=== PATIENT | male | born 1930 | race Caucasian/White ===

== ENCOUNTER 2019-07-16 10:26 | Inpatient (IN) | payer MEDICARE, BC ==
--- NOTE | 2019-07-16 11:18 | RAD ---
PORTABLE CHEST ONE VIEW: 07/16/2019 10:42 a.m. HISTORY: Dyspnea. Dizziness. COMPARISON: 12/30/2007 FINDINGS: The heart size is normal. A left-sided pacemaker device is seen. No lobar consolidation, pneumothorac es or pleural effusions are identified. IMPRESSION: No radiographic evidence of acute cardiopulmonary process. POS: OFF
[2019-07-16 11:36] LABS: ALT (SGPT) 18 U/L (8-55); AST (SGOT) 22 U/L (5-34); Albumin 3.6 g/dL (3.4-4.8); Alkaline Phosphatase 101 U/L (40-110); Anion Gap 11 mmol/L (10-20); BUN (Urea Nitrogen) 19 mg/dL (8.4-25.7); Bilirubin, Total 0.6 mg/dL (0.2-1.2); CK (CPK) 42 U/L (30-200); Calc. Creatinine Clearance 0 mL/min (70-130); Calcium 8.1 mg/dL (7.8-10.44); Carbon Dioxide 28 mmol/L (23-31); Chloride 100 mmol/L (98-107); Estimated GFR-MDRD 41; Globulin 2.4 g/dL (2.4-3.5); Glucose 113 mg/dL (83-110); Lipase 18 U/L (8-78); Potassium 3.2 mmol/L (3.5-5.1); Sodium 136 mmol/L (136-145)
[2019-07-16 12:01] LABS: Bilirubin Negative (Negative); Blood, Urine Negative (Negative); Clarity Clear (Clear); Glucose, Urine (Dipstick) Normal (Negative); Leukocyte Negative Leu/uL (Negative); Nitrite Negative (Negative); Protein, Urine (Dipstick) Negative (Neg-Trace); Urobilinogen Normal mg/dL (Less than 2)
[2019-07-16 12:01] LABS: CKMB 1.4 ng/mL (0-6.6)
[2019-07-16 12:37] LABS: #Basophils 0.1 thou/uL (0.0-0.2); #Eosinphils 0.2 thou/uL (0.0-0.7); #Lymphocytes 1.6 thou/uL (1.20-3.40); #Monocytes 0.7 thou/uL (0.11-0.59); #Neutrophils 5.5 thou/uL (1.40-6.50); %Basophils 1.1 % (0.0-1.0); %Eosinophils 2.6 % (0.0-10.0); %Lymphocytes 20.3 % (21.0-51.0); %Monocytes 8.1 % (0.0-10.0); %Neutrophils 67.9 % (42.0-75.0); Hemoglobin 15.8 g/dL (14.0-18.0); Mean Corpuscular HGB CONC 33.5 g/dL (32.0-36.0); Mean Corpuscular Hemoglobin 32.8 pg (27.0-31.0); Mean Corpuscular Volume 97.9 fL (78.0-98.0); Platelet Count 199 thou/uL (130-400); RBC Distribution Width 13.4 % (11.5-14.5); Red Blood Cell (RBC) Count 4.82 mill/uL (4.70-6.10); White Blood Cell (WBC) Count 8.1 thou/uL (4.8-10.8)
[2019-07-16] MEDS ORDERED: Iopamidol-370 76% 500 ML 1 ML ONE (13:10)
[2019-07-16] MEDS ORDERED: Aspirin Chewable 81 MG TAB ONE (15:04)
[2019-07-16] MEDS ORDERED: Potassium Chloride 20 MEQ TAB ONE (15:04)
--- NOTE | 2019-07-16 15:28 | PDOC.FPRHP ---
- History of Present Illness Chief Complaint: Hypotension History of Present Illness: Pt is an 88 yo M with pmh BPH, hypothyroidism, CAD, depression, and anxiety who presents for tachycardia and hypotension. He says he has had fluctations where he has had his heart rate in the 120-130s with his systolic blood pressure in the 70s. He says he had chest pain 2 days ago and took a nitro and it resolved. 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 Kirkpatrick, back in March. He said he had a full work up in February, which showed some stenosis. ED Course: In the ED, he received 40 K+, 1L NS, and an ASA. He was found to have a DDimer: 0.53 so VQ scan was ordered. Troponin was 0.029, BNP was 58.5. - Allergies/Adverse Reactions Allergies Allergy/AdvReac Type Severity Reaction Status Date / Time diltiazem Allergy Verified 07/16/19 16:07 warfarin [From Coumadin] Allergy Verified 07/16/19 16:31 coumadin Allergy Uncoded 07/16/19 16:31 - Home Medications Medication Instructions Recorded Confirmed Type ALPRAZolam [Xanax] 0.5 mg PO TID PRN 07/16/19 07/16/19 History Aspirin Chewable 81 mg PO DAILY 07/16/19 07/16/19 History Cyanocobalamin (Vitamin B-12) 1,000 mcg PO DAILY 07/16/19 07/16/19 History [Vitamin B-12] Finasteride [Proscar] 5 mg PO DAILY 07/16/19 07/16/19 History Fish Oil 1,000 mg PO DAILY 07/16/19 07/16/19 History Flaxseed Oil [Flax Oil] 2 tablet PO DAILY 07/16/19 07/16/19 History Hydrochlorothiazide 25 mg PO DAILY 07/16/19 07/16/19 History Isosorbide Mononitrate [Imdur ER] 30 mg PO DAILY 07/16/19 07/16/19 History Levothyroxine Sodium [Synthroid] 25 mcg PO DAILY 07/16/19 07/16/19 History Losartan [Cozaar] 25 mg PO DAILY 07/16/19 07/16/19 History Metoprolol Succinate [Toprol XL] 25 mg PO DAILY 07/16/19 07/16/19 History Mirtazapine [Remeron Soltab] 15 mg PO BID 07/16/19 07/16/19 History Multivitamin [Multiple Vitamins] 1 each PO DAILY 07/16/19 07/16/19 History Niacin (Inositol Niacinate) 500 mg PO HS 07/16/19 07/16/19 History [Niacin 500 mg Capsule] Nitroglycerin [Nitrostat] 0.4 mg SL Q5MIN PRN 07/16/19 07/16/19 History OLANZapine [ZyPREXA] 2.5 mg PO DAILY 07/16/19 07/16/19 History PARoxetine HCl [Paroxetine HCl] 10 mg PO DAILY 07/16/19 07/16/19 History Simvastatin [Zocor] 20 mg PO HS 07/16/19 07/16/19 History - History PMHx: BPH, Hypothyroidism, CAD, Depression, Anxiety PSHx: Appendectomy 50 years ago, Stent x1 (7-8 years ago) FHx: AMAYA in [facility] Social: Denies alcohol, recreational drugs, or tobacco abuse. - Review of Systems General: denies: fever/chills Eyes: denies: vision changes ENT: denies: nasal congestion, rhinorrhea Respiratory: denies: cough, congestion, shortness of breath Cardiovascular: reports: chest pain. denies: edema Gastrointestinal: denies: nausea, vomiting, diarrhea, constipation, abdominal pain Genitourinary: reports: other (urinary hesitancy) Skin: denies: rashes, lesions Musculoskeletal: denies: pain, tenderness Neurological: reports: other (Dizziness). denies: numbness, weakness Psychological: reports: anxiety, depression - Vital signs BP: 156/81 HR: 60 RR: 17 Tmax: 97. Pox: 96% on RA Wt: 79 kg - Physical Exam Constitutional: NAD, awake, alert and oriented HEENT: normocephalic and atraumatic, conjunctiva clear, no scleral icterus, normal nasal mucosa, MMM, oropharynx clear Neck: supple, no LAD Heart: RRR, normal S1/S2, no murmurs/rubs/gallops, pulses present, no edema Lungs: CTAB, no respiratory distress, good air movement, no rales/rhonchi, no wheezing, no retractions Abdomen: soft, non-tender, bowel sounds present, no masses/distention, no hernias Musculoskeletal: normal structure, normal tone Neurological: no focal deficit, normal sensation Skin: no rash/lesions, good turgor Heme/Lymphatic: no unusual bruising or bleeding, no purpura, no petechia FMR H&P: Results - Labs Result Diagrams: 07/17/19 04:15 07/17/19 04:15 Lab results: WBC 8.1 thou/uL (4.8-10.8) 07/16/19 11:07 Hgb 15.8 g/dL (14.0-18.0) 07/16/19 11:07 Hct 47.2 % (42.0-52.0) 07/16/19 11:07 MCV 97.9 fL (78.0-98.0) 07/16/19 11:07 Plt Count 199 thou/uL (130-400) 07/16/19 11:07 Neutrophils % 67.9 % (42.0-75.0) 07/16/19 11:07 Sodium 136 mmol/L (136-145) 07/16/19 10:54 Potassium 3.2 mmol/L (3.5-5.1) L 07/16/19 10:54 Chloride 100 mmol/L (98-107) 07/16/19 10:54 Carbon Dioxide 28 mmol/L (23-31) 07/16/19 10:54 BUN 19 mg/dL (8.4-25.7) 07/16/19 10:54 Creatinine 1.59 mg/dL (0.7-1.3) H 07/16/19 10:54 Glucose 113 mg/dL (83-110) H 07/16/19 10:54 Lactic Acid 1.6 mmol/L (0.5-2.2) 07/16/19 11:04 Calcium 8.1 mg/dL (7.8-10.44) 07/16/19 10:54 Total Bilirubin 0.6 mg/dL (0.2-1.2) 07/16/19 10:54 AST 22 U/L (5-34) 07/16/19 10:54 ALT 18 U/L (8-55) 07/16/19 10:54 Alkaline Phosphatase 101 U/L (40-110) 07/16/19 10:54 Creatine Kinase 42 U/L (30-200) 07/16/19 10:54 CK-MB (CK-2) 1.4 ng/mL (0-6.6) 07/16/19 10:54 B-Natriuretic Peptide 58.5 pg/mL (0-100) 07/16/19 10:54 Serum Total Protein 6.0 g/dL (5.8-8.1) 07/16/19 10:54 Albumin 3.6 g/dL (3.4-4.8) 07/16/19 10:54 Lipase 18 U/L (8-78) 07/16/19 10:54 Urine Ketones Negative mg/dL (Negative) 07/16/19 11:38 Urine Blood Negative (Negative) 07/16/19 11:38 Urine Nitrite Negative (Negative) 07/16/19 11:38 Ur Leukocyte Esterase Negative Zuleyma/uL (Negative) 07/16/19 11:38 FMR H&P: A/P - Problem List (1) CAD (coronary artery disease) Current Visit: Yes Status: Acute Code(s): I25.10 - ATHSCL HEART DISEASE OF [place] CORONARY ARTERY W/O ANG PCTRS (2) HTN (hypertension) Current Visit: Yes Status: Acute Code(s): I10 - ESSENTIAL (PRIMARY) HYPERTENSION (3) HLD (hyperlipidemia) Current Visit: Yes Status: Acute Code(s): E78.5 - HYPERLIPIDEMIA, UNSPECIFIED (4) Depression Current Visit: Yes Status: Acute Code(s): F32.9 - MAJOR DEPRESSIVE DISORDER , SINGLE EPISODE, UNSPECIFIED (5) Anxiety Current Visit: Yes Status: Acute Code(s): F41.9 - ANXIETY DISORDER, UNSPECIFIED (6) BPH (benign prostatic hyperplasia) Current Visit: Yes Status: Acute Code(s): N40.0 - BENIGN PROSTATIC HYPERPLASIA WITHOUT LOWER URINRY TRACT SYMP (7) GIANNI (acute kidney injury) Current Visit: Yes Status: Acute Code(s): N17.9 - ACUTE KIDNEY FAILURE, UNSPECIFIED - Plan Pt is an 88 yo M with pmh BPH, hypothyroidism, CAD, depression, and anxiety who presents for tachycardia and hypotension. 1. Concerns for CO Tachycardia, Hypotension, Dizziness * EKG: LBBB, 1st admission no others to compare * Requested records * Trop: 0.029 * Will trend trops * Pacemaker interrogated 2. GIANNI vs CKD Cre: 1.59 * Will monitor bmps * s/p 1 L in ED 3. R/o PE DDimer: 0.83 * CTA was negative 4. BPH Continue home meds: Finasteride 5. Depression & Anxiety Continue home meds: Olanzapine, Paroxetine, Alaprazolam 6. HLD Continue home meds: Atorvastatin 7. Hx of CAD Continue home meds: HCTZ, ASA, Metoprolol, Fish Oil, Nitro, Losartan 8. Hypothyroidism Continue home meds: Levothyroxine * Will check a TSH Code Status: DNR-DNI Diet: HHLSo DVT PPx: Lovenox 30 GI PPx: Tums IVF: SL PCP: Keshia Dispo: Admit to tele obs for cardiac work up. LOS <48H. FMR H&P: Upper Level - Plan Date/Time: 07/16/19 1524 I, Rosalva Wolfe, have evaluated this patient and agree with findings/plan as outlined by internal revenue agent resident. Pertinent changes/additions are listed here. 88 yo M with PMH CAD, HTN, pacemaker presents for 2 days history of intermittent palpitations and hypotension. Notes this am he felt like his heart was racing, had HR 125-130 at home associated with BP down to 90s systolic. Reports weakness, not feeling well and presented to ED. Yesterday had similar event that lasted 2-3 hours and spontaneously resolved. Denies SOB. Reports event of CP 2 days ago that resovled with nitro. No causative factor, not associated with anxiety. Denies hx arrhythmia. Has pacemaker. Follows with cardiology at the [facility], Dr. Martínez and Ana. Initial VS in ED was HR 135 and BP 90/ 76 which spontaneously resolved. BP and pulse wnl since in ED. Patient reports feeling well and back to normal now. Pacemaker interrogated and normal per ED doctor. PMH includes CAD s/p stent x1, BPH, HTN, HLD, hypothyroid, pacemaker, anxiety, depression. EKG LBBB, atrial paced Given 40meq K, 1L, ASA in ED 134/76, 62, 98.2, 96% on RA, 12 PE: Gen: well appearing, NAD Heart: RRR, no murmur Lungs: CTAB Ab: BS present, soft NT Ext: no edema, full strength LBBB of unknown duration - No prior EKG to compare - Will consult cardiology presuming this is a new finding. Pacemaker interrogated and reportedly normal. Request records from [facility]. Patient reports having a normal workup including a cath 03/07. Indeterminate troponin -0.029, continue to trend GIANNI vs CKD -Continue to trend, no prior to compare Hypokalemia - Replaced in ED, recheck in ED Elevated dimer - 0.53 in ED, CTA ordered in ED read pending Hypothyroid -check TSH considering hx palpitations Diet: HH Ppx: lovenox PCP: Keshia Attending: Kalee Dispo: admit to telemetry for observation, expected LOS <48hrs Addendum - Attending - Attending Attestation Date/Time: 07/16/19 5233 I personally evaluated the patient and discussed the management with [Oj] I agree with the History, Examination, Assessment and Plan documented above with any addition or exceptions noted below.
[2019-07-16 16:00] LABS: Troponin I 0.042 ng/mL (< 0.028)
[2019-07-16] MEDS ORDERED: Ondansetron ODT 4 MG TAB PO PRN ×2 (16:31→16:52)
[2019-07-16] MEDS ORDERED: Ondansetron PF 4 MG/2 ML Vial IVP PRN ×3 (16:31→16:52)
[2019-07-16] MEDS ORDERED: Senokot S 8.6-50 MG TAB PO PRN ×2 (16:31→16:52)
[2019-07-16] MEDS ORDERED: Acetaminophen 325 MG TAB PO PRN ×2 (16:31→16:52)
[2019-07-16] MEDS ORDERED: Calcium Carbonate 500 MG ChewTAB PO PRN ×2 (16:31→16:52)
[2019-07-16] MEDS ORDERED: Ondansetron ODT 4 MG TAB SL PRN (16:34)
--- NOTE | 2019-07-16 16:35 | CT ---
CT PULMONARY ANGIOGRAM WITH IV CONTRAST AND 3D POSTPROCESSIN07/16/19 HISTORY: Elevated D-dimer, hypotension, dizziness. FINDINGS: There is good contrast opacification of the pulmonary artery vasculature without filling defects to s uggest pulmonary embolism. There are vascular calcifications without evidence of aneurysmal dilatatio n of the thoracic aorta. No pleural or pericardial effusions are seen. No pneumothoraces, focal areas of consolidation or lung bases/nodules are seen. There are dependent changes in the lung bases. Dege nerative changes are seen in the spine. IMPRESSION: No CT evidence of pulmonary embolism. POS: OFF
[2019-07-16 17:30] VITALS: BMI 26.6
[2019-07-16 17:34] LABS: Magnesium 2.7 mg/dL (1.6-2.6); Phosphorus 3.1 mg/dL (2.3-4.7)
[2019-07-16] MEDS: Sodium Chloride 0.9% 1,000 ML IV SCH (17:58)
[2019-07-16] MEDS ORDERED: Nitroglycerin 0.4 MG TAB (25 Tab Bottle) SL PRN (17:58)
[2019-07-16] MEDS ORDERED: ALPRAZolam 0.5 MG TAB PO PRN (17:58)
[2019-07-16 20:26] LABS: Troponin I 0.036 ng/mL (< 0.028)
[2019-07-16] MEDS: Mirtazapine 15 MG Soltab PO SCH (20:42)
[2019-07-16] MEDS: Metoprolol Tartrate 50 MG TAB PO SCH (20:42)
[2019-07-16] MEDS ORDERED: Niacin 500 MG TAB PO SCH (21:00)
[2019-07-16] MEDS ORDERED: Atorvastatin Calcium 10 MG TAB PO SCH (21:00)
--- NOTE | 2019-07-16 23:30 | CON ---
DATE OF CONSULTATION: 07/16/2019 INDICATION FOR CONSULTATION: An 88-year-old patient who was admitted with tachycardia and hypotension. HISTORY OF PRESENT ILLNESS: This very pleasant 88-year-old gentleman who has a history of pacemaker insertion implanted in 2004 and had a change out of the device in 2017. He also has a history of coronary artery disease. In 2004, he was noted to have coronary artery disease, was treated medically. In 2007, he underwent repeat cardiac catheterization, was again found to have coronary artery disease, which showed an ostial stenosis in the right coronary about 50% and also had a mid stenosis about 40%. The left circumflex was 65% to 70% percent stenosed in the mid section between the 1st and 2nd obtuse marginal branches. The diagonal branch was also 40%. The left anterior descending artery had diffuse disease, it was a narrowed vessel throughout the mid to distal area. Apparently within the last 6 or 7 years at some point time, he does not remember exactly, he underwent stent placement and I do not know which vessel was stented. This was performed apparently at [facility] by Dr. Roger Perez, then in February of this year, he underwent stress testing which showed no evidence of underlying ischemia apparently. He has been taking his medications as usual, but yesterday morning he knows he had a fast heart rate and it resolved. Again this morning, he had a similar episode where he became dizzy associated with the tachycardia. He presented to the emergency room. Interrogation of his pacemaker did not show any evidence of tachycardia. However, while he was in the emergency room, he did have an episode of rapid heart rate about 140 almost 150 beats per minute with a regular rhythm with a wide-complex, which appears to be either atrial flutter or SVT. He also had what was felt to be a new left bundle branch block. I cannot tell whether this is a new left bundle or not. I do not have any records to compare with and there is no mention of previous records of his old EKGs at least whether it was a left bundle or not. At this time, he denied any chest pain. He has been doing quite well otherwise, but has had no further episodes of tachycardia since being here on the floor. It is very suspicious for atrial flutter with a 2:1 block and I will ask Dr. Taylor for his input since he has been following the patient's pacemaker and the patient may need to undergo EP evaluation and possible ablation, if this is atrial flutter or SVT. Interrogation of pacemaker also shows that he is pacing in the atrium almost 99% of the time. He has ventricular pacing 0.2% of the time. SOCIAL HISTORY: He is a . He has no alcohol or tobacco abuse. ALLERGIES: HE IS ALLERGIC TO COUMADIN AND DILTIAZEM. HE HAS A HISTORY OF HAVING AN ALLERGY TO PROSCAR, WHICH CAUSED HIM TO HAVE A RASH. HE HAD INTOLERANCE ALSO TO CARDIZEM, CIPRO AND PLAVIX. PAST MEDICAL HISTORY,: I will give a list of his medications, rather extensive list which include: 1. Alprazolam. 2. Aspirin 81 mg daily. 3. Vitamin B12. 4. Finasteride 5 mg daily. 5. Gibson-3 fatty acids. 6. Flaxseed oil. 7. Hydrochlorothiazide 25 mg once daily. 8. Isosorbide mononitrate 30 mg once daily. 9. Levothyroxine 25 mcg daily. 10. Losartan 25 mg once daily. Metoprolol, he is taking 50 mg once daily. He had been on 25 mg tablet previously, which was increased, within the last year apparently up to about 50 mg daily at least according to the patient. 11. He is on mirtazapine. 12. Theragran-M tablets. 13. Niacin. 14. Nitroglycerin p.r.n. as needed. 15. Olanzapine 2.5 mg once daily. 16. Paroxetine 10 mg once daily. 17. Simvastatin 20 mg daily. PAST MEDICAL HISTORY: Significant for the coronary artery disease, transurethral resection of prostate, pacemaker insertion in 2004, changed out again in 2017. He has a history of hypertension, diastolic dysfunction, history of sick sinus syndrome for which he underwent pacemaker insertion in 2004, irritable bowel syndrome, diverticulosis. He has had benign colon polyps. He has osteoarthritis, benign prostatic hypertrophy. He has had bladder stones. He has decreased hearing. He has had angioplasty and stent placement apparently. FAMILY HISTORY: Noncontributory. REVIEW OF SYSTEMS: He wears glasses. Has difficulty swallowing at times. He has constipation. Complains of dizziness with the tachycardia. Otherwise, 12-point review of systems is relatively unremarkable in this 88-year-old patient. PHYSICAL EXAMINATION: GENERAL: Reveals a well-developed, well-nourished, very pleasant gentleman. VITAL SIGNS: His blood pressure was 158/72, he is afebrile, heart rate is 72, he shows atrial pacing and ventricular sensing, respiratory rate is 18 and O2 saturation is 97% on room air. HEENT: Shows the head to be normocephalic and atraumatic. Carotid pulses are present without any bruits. CHEST: Clear to auscultation without rales, rhonchi, or wheezing. CARDIOVASCULAR: At this time reveals a regular rate and rhythm. He has normal S1, S2. He has a very soft systolic murmur at the apex. I did not hear any significant murmurs, heaves, thrills, bruits, or rubs noted. ABDOMEN: Soft and nontender. Positive bowel sounds are present. EXTREMITIES: Show no clubbing, cyanosis, or edema. Pedal pulses are present. NEUROLOGIC: He appears to be fully intact with normal strength and tone. He is able to ambulate without difficulties. SKIN: Warm and dry. NEUROLOGIC: He appears to be unremarkable otherwise. IMAGING PROCEDURE: His EKG at this time shows an atrial pacing with ventricular sensing. He does have what appears to be a left bundle branch block also. Interrogation of the pacemaker as outlined above. Chest x-ray showed no acute changes. LABORATORY DATA: WBC was 8.1, hemoglobin 15.8, and platelet count was 199,000. Sodium was 136, potassium is 3.2, creatinine was 1.59, BUN was 19. His glucose was 113. Troponin I was 0.029, increased up to 0.042. CPK MB was 1.4. D-dimer was 0.53. Urinalysis was unremarkable. IMAGING: Chest x-ray showed no acute changes. No evidence of pulmonary emboli noted on a pulmonary CT scan. IMPRESSION: 1. Elderly gentleman with what appears to be possible atrial flutter with a 2:1 block or supraventricular tachycardia causing tachycardia in this gentleman who has poor tolerance with tachycardia. We will ask Dr. Taylor to evaluate the patient. He may need to undergo an ablation of either SVT or either atrial flutter. 2. History of sick sinus syndrome in the past. He did have some history of intermittent atrial fibrillation apparently, but this appears to be very irregular. I doubt this is atrial fibrillation. He has a pacemaker insertion inserted and we will continue his medications. We may be able to increase the beta blockers to suppress some of the tachycardia. 3. History of hypertension. This is under reasonable control at this time, but increasing the beta blockers might help. 4. History of coronary artery disease. He underwent stent placement 6 or 7 years ago and recently had a negative stress test. It does not appear that this is an issue at this time despite having slight increase in the cardiac enzymes, which most likely is associated with the tachycardia. 5. Diastolic dysfunction. If he has had a recent echocardiogram, I do not see the need to repeat this and we can get those records from [facility]. Otherwise, he will need to undergo a repeat echocardiogram for evaluation of systolic function as well as the diastolic function. We would be more than happy to continue to follow the patient with you throughout this hospital course. Job ID: [id number]
[2019-07-17] MEDS ORDERED: hydrALAZINE 20 MG/ML VIAL SLOW IVP PRN (03:31)
[2019-07-17] MEDS: Sodium Chloride 0.9% 1,000 ML IV SCH (04:20)
[2019-07-17 04:29] LABS: #Basophils 0.1 thou/uL (0.0-0.2); #Eosinphils 0.2 thou/uL (0.0-0.7); #Lymphocytes 1.9 thou/uL (1.20-3.40); #Monocytes 0.7 thou/uL (0.11-0.59); #Neutrophils 6.2 thou/uL (1.40-6.50); %Basophils 0.8 % (0.0-1.0); %Eosinophils 2.5 % (0.0-10.0); %Lymphocytes 20.8 % (21.0-51.0); %Monocytes 7.9 % (0.0-10.0); Hemoglobin 15.9 g/dL (14.0-18.0); Mean Corpuscular HGB CONC 31.5 g/dL (32.0-36.0); Mean Corpuscular Hemoglobin 31.1 pg (27.0-31.0); Mean Corpuscular Volume 98.9 fL (78.0-98.0); Mean Platelet Volume 7.2 fL (7.4-10.4); Platelet Count 190 thou/uL (130-400); RBC Distribution Width 13.6 % (11.5-14.5); Red Blood Cell (RBC) Count 5.11 mill/uL (4.70-6.10); White Blood Cell (WBC) Count 9.1 thou/uL (4.8-10.8)
[2019-07-17 04:58] LABS: Anion Gap 11 mmol/L (10-20); BUN (Urea Nitrogen) 16 mg/dL (8.4-25.7); Calc. Creatinine Clearance 52 mL/min (70-130); Calcium 8.1 mg/dL (7.8-10.44); Carbon Dioxide 24 mmol/L (23-31); Chloride 105 mmol/L (98-107); Estimated GFR-MDRD 62; Glucose 87 mg/dL (83-110); Potassium 3.7 mmol/L (3.5-5.1); Sodium 136 mmol/L (136-145)
[2019-07-17] MEDS ORDERED: Levothyroxine Sodium 25 MCG TAB PO SCH (06:00)
--- NOTE | 2019-07-17 06:27 | PDOC.FM ---
- Subjective Subjective: He did not sleep well last night, because he watched tv all nigh. He says he did not eat his dinner, but he had some snacks. He felt bad after the Hydralazine was given for his blood pressure this morning. He said the top of his feet were hot and he felt like he was going to go to the bathroom on himself and the top of his head felt like it might blow off. - Objective MAR Reviewed: Yes Vital Signs & Weight: Vital Signs (12 hours) Temp Pulse Resp BP BP Pulse Ox 07/17/19 06:23 167/76 H 07/17/19 04:19 60 199/88 H 07/17/19 03:19 97.2 F L 60 199/88 H 96 07/16/19 20:35 98.0 F 60 18 171/76 H 96 Weight Weight 79.379 kg I&O: 07/15/19 07/16/19 07/17/19 06:59 06:59 06:59 Intake Total 900 Output Total 1150 Balance -250 Result Diagrams: 07/17/19 04:15 07/17/19 04:15 EKG Reviewed by me: Yes (APaced in the 60s) Phys Exam - Physical Examination Constitutional: NAD HEENT: moist MMs, sclera anicteric Neck: no nodes, supple Respiratory: no wheezing, no rales, no rhonchi, clear to auscultation bilateral Cardiovascular: RRR, no significant murmur, no rub Gastrointestinal: soft, non-tender, positive bowel sounds Musculoskeletal: no edema, pulses present Neurological: moves all 4 limbs Psychiatric: normal affect Skin: no rash, normal turgor Dx/Plan (1) CAD (coronary artery disease) Code(s): I25.10 - ATHSCL HEART DISEASE OF [place] CORONARY ARTERY W/O ANG PCTRS Status: Acute (2) HTN (hypertension) Code(s): I10 - ESSENTIAL (PRIMARY) HYPERTENSION Status: Acute (3) HLD (hyperlipidemia) Code(s): E78.5 - HYPERLIPIDEMIA, UNSPECIFIED Status: Acute (4) Depression Code(s): F32.9 - MAJOR DEPRESSIVE DISORDER, SINGLE EPISODE, UNSPECIFIED Status : Acute (5) Anxiety Code(s): F41.9 - ANXIETY DISORDER, UNSPECIFIED Status: Acute (6) BPH (benign prostatic hyperplasia) Code(s): N40.0 - BENIGN PROSTATIC HYPERPLASIA WITHOUT LOWER URINRY TRACT SYMP Status: Acute (7) GIANNI (acute kidney injury) Code(s): N17.9 - ACUTE KIDNEY FAILURE, UNSPECIFIED Status: Acute - Plan Plan: Pt is an 88 yo M with pmh BPH, hypothyroidism, CAD, depression, and anxiety who presents for tachycardia and hypotension. 1. Atrial Flutter Tachycardia, Hypotension, Dizziness * EKG: LBBB, 1st admission no others to compare * Requested records * Trop: 0.029 > 0.042 > 0.036 * Pacemaker interrogated * Consulted Cardio, appreciate recs * May need atrial ablation 2. GIANNI Cre: 1.59 > 1.12 * Will monitor bmps * s/p 1 L in ED 3. R/o PE DDimer: 0.83 * CTA was negative 4. BPH Continue home meds: Finasteride 5. Depression & Anxiety Continue home meds: Olanzapine, Paroxetine, Alaprazolam 6. HLD Continue home meds: Atorvastatin 7. Hx of CAD Continue home meds: HCTZ, ASA, Metoprolol, Fish Oil, Nitro, Losartan 8. Hypothyroidism Continue home meds: Levothyroxine * Will check a TSH 9. HTN BP 199/88 * PRN Hydralazine on board * Restart home medications listed under #7 Code Status: DNR-DNI Diet: HHLSo DVT PPx: Lovenox 30 GI PPx: Tums IVF: SL PCP: Keshia Dispo: Tele obs for cardiac work up. LOS <48H. Will await Cardiology recommendations. Addendum - Attending - Attending Attestation Date/Time: 07/17/19 2640 I personally evaluated the patient and discussed the management with [Oj] I agree with the History, Examination, Assessment and Plan documented above with any addition or exceptions noted below.
[2019-07-17] MEDS ORDERED: Enoxaparin Sodium 30 MG/0.3 ML SYRINGE SC SCH ×2 (09:00)
[2019-07-17] MEDS ORDERED: OLANZapine 2.5 MG TAB PO SCH (09:00)
[2019-07-17] MEDS ORDERED: Losartan 25 MG TAB PO SCH (09:00)
[2019-07-17] MEDS ORDERED: Cyanocobalamin (Vitamin B-12) 1,000 MCG TAB PO SCH (09:00)
[2019-07-17] MEDS ORDERED: Aspirin Chewable 81 MG TAB PO SCH (09:00)
[2019-07-17] MEDS ORDERED: PARoxetine 20 MG TAB PO SCH (09:00)
[2019-07-17] MEDS ORDERED: Multivit, Therapeutic 1 TAB PO SCH (09:00)
[2019-07-17] MEDS ORDERED: Isosorbide Mononitrate (ER) 30 MG TAB PO SCH (09:00)
[2019-07-17] MEDS ORDERED: Fish Oil 1,000 MG CAP PO SCH (09:00)
[2019-07-17] MEDS ORDERED: Hydrochlorothiazide 25 MG TAB PO SCH (09:00)
[2019-07-17] MEDS ORDERED: Finasteride 5 MG TAB PO SCH (09:00)
[2019-07-17] MEDS ORDERED: FLAXSEED OIL PO SCH (09:00)
[2019-07-17] MEDS: Metoprolol Tartrate 50 MG TAB PO SCH (09:02)
[2019-07-17] MEDS: Mirtazapine 15 MG Soltab PO SCH (09:16)
--- NOTE | 2019-07-17 14:36 | PDOC.CPN ---
- Subjective Date: 07/17/19 Time: 14:40 Interval history: The pt seen and examined. No overnight events. No cardiac complaints - Objective Allergies/Adverse Reactions: Allergies Allergy/AdvReac Type Severity Reaction Status Date / Time diltiazem Allergy Verified 07/16/19 16:07 warfarin [From Coumadin] Allergy Verified 07/16/19 16:31 coumadin Allergy Uncoded 07/16/19 16:31 Visit Medications: Current Medications Acetaminophen (Tylenol) 650 mg PO Q4H PRN PRN Reason: Headache/Fever/Mild Pain (1-3) Last Admin: 07/17/19 11:59 Dose: 650 mg Alprazolam (Xanax) 0.5 mg PO TID PRN PRN Reason: Anxiety Last Admin: 07/16/19 20:44 Dose: 0.5 mg Aspirin (Aspirin Chewable) 81 mg PO DAILY [facility] Last Admin: 07/17/19 09:03 Dose: 81 mg Atorvastatin Calcium (Lipitor) 10 mg PO HS [facility] Last Admin: 07/16/19 20:42 Dose: 10 mg Calcium Carbonate (Tums) 1,000 mg PO Q4H PRN PRN Reason: Heartburn or Indigestion Cyanocobalamin (Vitamin B-12) 1,000 mcg PO DAILY [facility] Last Admin: 07/17/19 09:03 Dose: 1,000 mcg Enoxaparin Sodium (Lovenox) 30 mg SC 0900 [facility] Last Admin: 07/17/19 09:00 Dose: 30 mg Finasteride (Proscar) 5 mg PO DAILY [facility] Last Admin: 07/17/19 09:16 Dose: 5 mg Fish Oil (Fish Oil) 1,000 mg PO DAILY [facility] Last Admin: 07/17/19 09:01 Dose: 1,000 mg Hydralazine HCl (Apresoline) 10 mg SLOW IVP Q4H PRN PRN Reason: SBP > 180 Last Admin: 07/17/19 04:19 Dose: 10 mg Hydrochlorothiazide (Hydrochlorothiazide) 25 mg PO DAILY [facility] Last Admin: 07/17/19 09:00 Dose: 25 mg Isosorbide Mononitrate (Imdur Er) 30 mg PO DAILY [facility] Last Admin: 07/17/19 09:00 Dose: 30 mg Levothyroxine Sodium (Synthroid) 25 mcg PO 0600 [facility] Last Admin: 07/17/19 04:21 Dose: 25 mcg Losartan Potassium (Cozaar) 25 mg PO DAILY [facility] Last Admin: 07/17/19 09:00 Dose: 25 mg Metoprolol Tartrate (Lopressor) 50 mg PO BID [facility] Last Admin: 07/17/19 09:02 Dose: 50 mg Mirtazapine (Remeron Soltab) 15 mg PO BID [facility] Last Admin: 07/17/19 09:16 Dose: 15 mg Multivitamins (Theragran) 1 tab PO DAILY [facility] Last Admin: 07/17/19 09:00 Dose: 1 tab Niacin (Niacin) 500 mg PO HS [facility] Last Admin: 07/16/19 20:49 Dose: 500 mg Nitroglycerin (Nitrostat) 0.4 mg SL Q5MIN PRN PRN Reason: Chest Pain Olanzapine (Zyprexa) 2.5 mg PO DAILY [facility] Last Admin: 07/17/19 09:01 Dose: 2.5 mg Ondansetron HCl (Zofran Odt) 4 mg PO Q6H PRN PRN Reason: Nausea/Vomiting Ondansetron HCl (Zofran) 4 mg IVP Q6H PRN PRN Reason: Nausea/Vomiting Paroxetine HCl (Paxil) 10 mg PO DAILY [facility] Last Admin: 07/17/19 09:01 Dose: 10 mg Flaxseed Oil [Flax (Oil] 2 Tablet) 0 each PO DAILY [facility] Senna/Docusate Sodium (Senokot S) 2 tab PO BID PRN PRN Reason: Constipation Sodium Chloride (Flush - Normal Saline) 10 ml IVF Q12HR PRN PRN Reason: Saline Flush Sodium Chloride (Flush - Normal Saline) 10 ml IVF PRN PRN PRN Reason: Saline Flush Vital Signs & Weight: Vital Signs Temp Pulse Pulse Pulse Pulse Pulse Resp 07/17/19 12:32 96.7 F L 62 14 07/17/19 11:40 60 66 68 103 H 07/17/19 07:42 97.8 F 59 L 16 07/17/19 06:23 07/17/19 04:19 60 07/17/19 03:19 97.2 F L 60 BP BP BP BP BP BP Pulse Ox 07/17/19 12:32 152/76 H 96 07/17/19 11:40 129/63 121/58 L 125/58 L 125/73 07/17/19 07:42 158/72 H 96 07/17/19 06:23 167/76 H 07/17/19 04:19 199/88 H 07/17/19 03:19 199/88 H 96 Weight 175 lb - Physical Exam General: alert & oriented x3 HEENT: mucus membranes moist Neck: supple neck Cardiac: regular rate and rhythm, S1/S2 Lungs: clear to auscultation Extremities: no edema - Labs Result Diagrams: 07/17/19 04:15 07/17/19 04:15 Troponin/CKMB CK-MB (CK-2) 1.4 ng/mL (0-6.6) 07/16/19 10:54 Troponin I 0.036 ng/mL (< 0.028) H 07/16/19 19:55 - Telemetry Sinus rhythms and dysrhythmias: other (A paced) - Assessment/Plan Assessment/Plan: 1. 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 2. CAD with hx of stent in past - 3. HTN 4. Chronic diastolic HF 5. HLD 6. Hypothyroidism MAR reviewed * The pt will f/u with Dr Perez and Dr Taylor as schedule
[2019-07-17 16:38] VITALS: BP 164/74; TEMP 97.5
--- NOTE | 2019-07-18 06:20 | CON ---
DATE OF CONSULTATION: 07/17/2019 TIME SEEN: 10:21 a.m. PRIMARY CARE PHYSICIAN: Antonio Schmitt MD. PRIMARY FLAVOR EXTRACTOR: Roger Perez DO. REFERRING FLAVOR EXTRACTOR: Geneva Jauregui MD. REASON FOR CONSULTATION: Atrial tachycardia. HISTORY OF PRESENT ILLNESS: Mr. Dalal is a very pleasant 88-year-old white male with a history of sick sinus syndrome with Medtronic dual-chamber pacemaker, paroxysmal atrial fibrillation, coronary artery disease, and hypertension. He was admitted yesterday with dizziness and palpitations. He had palpitations lasted several seconds and described as "heart racing," mild in intensity. No exacerbating or alleviating factors. Troponin was normal. EKG showed atrial paced rhythm with left bundle-branch block. He has had no syncope or chest discomfort. On telemetry en route in the ambulance, he had nonsustained atrial tachycardia. Interrogation of his Medtronic dual-chamber pacemaker by myself today shows normal function with no arrhythmias. I have reprogramed his device to lower his atrial detections to 133 beats per minute, I have turned his atrial therapies off. CARDIAC HISTORY: On 03/01/2019, echocardiogram, normal left atrial size. Ejection fraction 62%. Normal valves. CARDIAC PROCEDURES: On 03/14/2019, catheterization by Dr. Perez, 0% left circumflex and LAD with patent left circumflex stent. Slight positive remodeling in the proximal and mid LAD with 30% mid LAD lesion, 50% RCA lesion with FFR of 0.94. PAST MEDICAL HISTORY: 1. Sick sinus syndrome with Medtronic (MRI conditional) dual-chamber pacemaker with generator change on 09/02/2014. 2. Coronary artery disease with stent of the mid lower circumflex by Dr. Perez on 09/04/2015. 3. Hypertension. 4. Generalized anxiety disorder. 5. Paroxysmal atrial fibrillation. 6. Major depressive disorder, single episode. 7. Hematuria, on aspirin and Plavix at the time. 8. Partial TURP and cautery in 12/2007. 9. Benign prostatic hypertrophy. 10. Chronic left bundle-branch block. ALLERGIES: DILTIAZEM AND WARFARIN (BLEEDING). OUTPATIENT MEDICATIONS: Please see record. SOCIAL HISTORY: He is . He lives in [place]. REVIEW OF SYSTEMS: Positive for palpitations. Negative for orthopnea, edema, fever, chills, seizures, stroke, exertional dyspnea, or chest discomfort. PHYSICAL EXAMINATION: GENERAL: Alert and oriented x4, in no apparent distress. VITAL SIGNS: Afebrile, blood pressure 158/72, pulse 60, respiratory rate 12, and 96% oxygen saturation on room air. HEENT: No lesions. Sclerae clear. SKIN: No lesions. CARDIOVASCULAR: Regular rate and rhythm. No murmurs, gallops, or rubs. LUNGS: Clear to auscultation bilaterally. No respiratory effort. EXTREMITIES: No cyanosis, clubbing, or edema. DIAGNOSTIC STUDIES: EKG: Atrial paced with left bundle branch block. Laboratory; WBC 9.1, hemoglobin 15.9, and platelet 190. Sodium 136, potassium 3.7, BUN 16, and creatinine 1.1. IMPRESSION: 1. Nonsustained atrial tachycardia, symptomatic. 2. Paroxysmal atrial fibrillation. No recent episodes on pacemaker check. 3. Coronary artery disease. No evidence of ischemia. RECOMMENDATIONS: 1. I have reprogramed his atrial detection to 133 beats per minute. 2. Dr. Jauregui has increased his metoprolol to 50 mg b.i.d. 3. Okay to discharge from electrophysiology standpoint. We will see him back in clinic in 1-2 weeks. We will arrange followup. Job ID: [id number]
--- NOTE | 2019-07-18 09:56 | DIS ---
DATE OF ADMISSION: 07/16/2019 DATE OF DISCHARGE: 07/17/2019 ADMITTING ATTENDING: Luis Granda DO DISCHARGE ATTENDING: Luis Granda DO RESIDENT: Kayden Mcwilliams MD CONSULTS: * Cardiology: Atrial flutter 2:1 with unchanged left bundle branch block. Consulted Dr. Jauregui, who consulted patient's primary EP doctor. History of coronary artery disease with stent, hypertension, chronic diastolic heart failure, hyperlipidemia, hypothyroidism. Increase metoprolol to 50 mg b.i.d. from 25 mg b.i.d. * EP, Dr. Taylor. Nonsustained atrial tachycardia, symptomatic paroxysmal atrial fibrillation. No recent episode on pacemaker. Coronary artery disease, no evidence of ischemia. He has reprogrammed his atrial detection to [address] Jauregui increased the metoprolol to 50 mg b.i.d. Okay to discharge from Electrophysiology. See in clinic in 1 to 2 weeks. PROCEDURES: * Chest x-ray shows no acute findings. * CTA of chest, no CT evidence of PE. PRIMARY DIAGNOSES: 1. Atrial flutter with 2:1 block causing syncope 2. Acute kidney injury 3. Elevated D-Dimer, Rule out PE. SECONDARY DIAGNOSES: 1. BPH 2. Depression and Anxiety 3. Hyperlipidemia 4. History of coronary artery disease 5. Hypothyroidism. DISCHARGE MEDICATIONS: 1. Metoprolol tartrate 50 mg p.o. b.i.d. Continue home medications: 1. Alprazolam 0.5 mg p.o. t.i.d. p.r.n. for anxiety 2. Aspirin 81 mg daily 3. Vitamin B12 at 1000 mcg daily 4. Finasteride 5 mg daily 5. Fish oil 1000 mg daily 6. Flaxseed oil 2000 mg daily 7. Hydrochlorothiazide 25 mg daily 8. Imdur 30 mg daily 9. Synthroid 25 mcg daily 10. Losartan 25 mg daily 11. Mirtazapine 15 mg b.i.d. 12. Multivitamin one daily 13. Niacin 500 mg at bedtime 14. Nitroglycerin 0.4 mg of sublingual q.5 minutes p.r.n. for chest pain 15. Olanzapine 2.5 mg daily 16. Paroxetine 10 mg daily 17. Zocor 20 mg at bedtime. Discontinue metoprolol tartrate 25 mg b.i.d. HISTORY OF PRESENT ILLNESS: The patient is an 88-year-old male with past medical history of BPH, hypothyroidism, coronary artery disease, depression and anxiety, who presents for tachycardia and hypertension. He says he had fluctuations where he had his heart rate go into the 120s and 130s with systolic blood pressures in the 70s. He says he had chest pain 2 days ago and took a nitroglycerin and it resolved. He says he was seen by a accounts payable or receivable clerk in [place], Dr. Kirkpatrick, back in March. He said he had a full workup in February, which shows some stenosis, but not enough for another stent placement. In the ED, he received 40 of potassium, 1 L of normal saline, and an aspirin. He was found to have a D-dimer 0.53, so a CTA was ordered and found to be negative. Troponins were indeterminate and trended down during the hospital stay. BNP was 58.5. ASSESSMENT AND PLAN: 1. Atrial flutter, tachycardia, hypotension, dizziness. EKG shows left bundle branch block. * Consultation of Cardiology which discovered this and a new finding, requested records. * The patient troponins were 0.029, 0.042, and 0.036, very indeterminate. * Pacemaker was interrogated. There was found to be no issues. * EP and Cardiology consulted as above. Appreciate recommendations. 2. Acute kidney injury, resolved. Creatinine was 1.59 on admission, trended down to 1.12. * He received 1 L of normal saline in the ED. 3. Rule out pulmonary embolism. D-dimer 0.83. * CTA was negative. 4. BPH. Continue home med of finasteride. 5. Depression and anxiety. Continue home medications: olanzapine, paroxetine, and alprazolam. 6. Hyperlipidemia. Continue home medication atorvastatin. 7. History of coronary artery disease. Continue home medications of hydrochlorothiazide, aspirin, metoprolol, fish oil , nitroglycerin, and losartan. 8. Hypothyroidism. Continue home med of levothyroxine. * TSH within normal limits. 9. Hypertension. Blood pressure was 199/88 the day after admission, this was likely due to the patient receiving his home medication doses. Home medication was restarted, p.r.n. hydralazine was given once, and the blood pressure issues resolved. Restarted home medications. DISCHARGE INSTRUCTIONS: 1. Location: Home. 2. Activity: As tolerated. 3. Diet: Heart-healthy, low-sodium. 4. Follow up with PCP in 7 days, Dr. Schmitt in 7 days of discharge, Dr. Taylor in 14 days of discharge, and Dr. Kirkpatrick in 2 weeks. Job ID: [id number] [id number]
== END 2019-07-17 18:00 | disposition home or self-care (01) | DRG 309 ==
LOC: ERS 10:26 → 2NO 16:51
PROVIDERS: ADMIT Family Medicine; ATTEND Family Medicine
DX: I48.92 Unspecified atrial flutter (principal); N17.9 Acute kidney failure, unspecified; I50.32 Chronic diastolic (congestive) heart failure; N40.0 Benign prostatic hyperplasia without lower urinary tract symptoms; F32.9 Major depressive disorder, single episode, unspecified; Z66 Do not resuscitate; F41.9 Anxiety disorder, unspecified; E78.5 Hyperlipidemia, unspecified; I25.10 Atherosclerotic heart disease of native coronary artery without angina pectoris; E03.9 Hypothyroidism, unspecified; I95.9 Hypotension, unspecified; I48.0 Paroxysmal atrial fibrillation; R31.9 Hematuria, unspecified; I44.7 Left bundle-branch block, unspecified; I11.0 Hypertensive heart disease with heart failure; Z95.5 Presence of coronary angioplasty implant and graft; Z95.0 Presence of cardiac pacemaker; Z79.01 Long term (current) use of anticoagulants; Z88.6 Allergy status to analgesic agent; Z88.1 Allergy status to other antibiotic agents; Z88.8 Allergy status to other drugs, medicaments and biological substances
CPT/HCPCS: 36415; 71045; 71275; 80048; 80053; 81003; 82550; 82553; 83605; 83690; 83735; 83880; 84100; 84443; 84484; 85025; 85379; 87040; 93005; 94760; J0360; J1650; Q9967